=== PATIENT | female | born 1960 | race Caucasian/White ===

== ENCOUNTER → 2016-10-25 | Outpatient (CLI) | payer BC ==
--- NOTE | 2016-10-26 13:20 | MAMMOGRAPHY REPORT ---
BILATERAL DIGITAL SCREENING MAMMOGRAM 3D/2D WITH CAD: 10/25/2016 CLINICAL HISTORY: Routine screening. Patient has no complaints. TECHNIQUE: Breast tomosynthesis in addition to standard 2D mammography was performed. Current study was also evaluated with a Computer Aided Detection (CAD) system. COMPARISON: Comparison is made to exams dated: 10/23/2015 mammogram, 10/21/2014 mammogram, 10/19/2013 m ammogram, 10/18/2012 mammogram, 10/18/2011 mammogram, and 10/14/2010 mammogram - [facility] enter. BREAST COMPOSITION: There are scattered areas of fibroglandular density in both breasts. FINDINGS: There is a stable benign-appearing subcentimeter mass in the lower outer posterior right b reast, most likely an intramammary lymph node. No new suspicious mass, architectural distortion or c luster of microcalcifications is seen. ACR BI-RADS CATEGORY 1: NEGATIVE There is no mammographic evidence of malignancy. A 1 year screening mammogram is recommended. The pa tient will receive written notification of the results. Approximately 10% of breast cancers are not detected with mammography. A negative mammographic report should not delay biopsy if a clinically suggestive mass is present. Promise Grier M.D. ay/:10/25/2016 15:51:15 Mig Welder: Shanon CHING(Leonardo)(M), [facility] letter sent: Normal 1/2 BI-RADS Code: ACR BI-RADS Category 1: Negative
== END | disposition home or self-care (01) ==
LOC: C.MAMM 10:38
PROVIDERS: ATTEND Nurse Practitioner Family
DX: Z12.31 Encounter for screening mammogram for malignant neoplasm of breast (principal)

== ENCOUNTER → 2017-01-06 | Day surgery (SDC) | payer BC ==
[2017-01-04 11:53] VITALS: Ht 160 cm; Wt 50.0 kg
[~2017-01-06] VITALS: Ht 160 cm; Wt 50.0 kg
[~2017-01-06] MED LIST: ALBU18002 INH; AZEL0.057 TOP; BIOT1CAP8 PO; BUPIVACAINE 0.25% 2.5MG/ML PF 10 ML VIAL ONE; CHOL100010 PO; CYAN100020 PO; IOPAMIDOL INJ 61% 15 ML VIAL ONE; LIDOCAINE HCL 1% MPF 5 ML VIAL ONE
--- NOTE | 2017-01-06 15:27 | History & Physical Bridge - [place] ---
H&P Re-Evaluation Bridge Note: I have examined the patient, reviewed the History & Physical and in the interval since the performance of the History & Physical I have noted the following changes of clinical significance: No changes noted
--- NOTE | 2017-01-06 15:51 | Discharge Instructions ---
Discharge Instructions Date of Service Jan 06, 2017. Visit Reason for Visit: Sacroiliitis Discharge Discharge Diagnosis / Problem: low back pain Discharge Goals Goal(s): Decrease discomfort, Improve function Activity Recommendations Activity Limitations: resume your previous activity Anesthesia . Post Anesthesia Instructions: If you have had General Anesthesia or IV Sedation: * Do not drive today. * Resume driving when surgeon permits. * Do not make important decisions or sign legal documents today. * Call surgeon for: 1. Temperature elevations greater than 101 degrees F. 2. Uncontrollable pain. 3. Excessive bleeding. 4. Persistent nausea and vomiting. 5. Medication intolerance (nausea, vomiting or rash). * For nausea and vomiting use only clear liquids such as: tea, soda, bouillon until nausea subsides, then gradually increase diet as tolerated. * If you have any concerns or questions, call your surgeon's office. If physician is unavailable and it is an emergency, call 911 or go to the nearest emergency room. . Diet Recommendations Recommended Home Diet: resume previous diet Procedures Procedures Performed: Right Sacroiliac Joint Injection Pending Studies Studies pending at discharge: no Medical Emergencies . Who to Call and When: Medical Emergencies: If at any time you feel your situation is an emergency, please call 911 immediately. . Non-Emergent Contact Non-Emergency issues call your: Specialist . . "Provider Documentation" section prepared by Allen Gonzalez. .
[2017-01-06 16:00] VITALS: BP 134/76; PULSE 74; TEMP 36.4; O2SAT 99
--- NOTE | 2017-01-06 16:10 | OPERATIVE REPORT ---
DATE OF OPERATION: 01/06/2017 PREOPERATIVE DIAGNOSIS: Right sacroiliitis. POSTOPERATIVE DIAGNOSIS: Same. PROCEDURE: Right sacroiliac joint injection under fluoroscopic guidance. INDICATIONS: The patient is a 56-year-old white female who is describing pain in the right sacroiliac joint, radiating to the proximal thigh and hip that was exacerbated by doing a lot of twisting. She has dealt with this problem for a number of months, upwards of a year and it is impacting her function and her daily life. She presents today for an SI joint injection under fluoroscopic guidance to provide her with relief. PHYSICAL EXAMINATION: Pleasant female seated comfortably. She has tenderness on the superior aspect of the SI joint, worse with extension. Positive Christy maneuver on the right. Equivocal sacral distraction maneuver. Normal motor and sensory exam. CONSENT: Verbal and written consent was obtained from the patient. Risks and benefits were reviewed. Risks include, but are not limited to abscess and allergic reaction. She wishes to proceed. DESCRIPTION OF PROCEDURE: The patient was taken back to the special procedures room of [facility], where she was maintained in a prone position. Backside was cleansed with Betadine x3 and a dry sterile dressing was applied. Fluoroscope was used to identify the right SI joint and the overlying skin was anesthetized with 2.5 mL of lidocaine 1% with a 25-gauge 1-1/2 inch needle. A 25-gauge 3-1/2 inch spinal needle was then easily directed into the joint. There was some discomfort when it entered the joint. Isovue-300 contrast 0.25 mL was injected, which demonstrated intra-articular placement of the needle. She then underwent injection after negative aspiration of 40 mg of Depo-Medrol and 1.5 mL of bupivacaine 0.25%. Injection was well tolerated. DISPOSITION: 1. The patient was taken out into the discharge recovery area, where she will be discharged home once discharge criteria have been met. 2. Follow up in the [facility] office in 2-4 weeks. I attest to the content of the Intraoperative Record and any orders documented therein. Any exception s are noted below.
== END | disposition home or self-care (01) ==
LOC: X.SURG 14:14
PROVIDERS: ATTEND Physical Medicine & Rehabilitation
DX: M46.1 Sacroiliitis, not elsewhere classified (principal)